=== PATIENT | male | born 1955 | race Caucasian/White ===

== ENCOUNTER → 2016-11-20 | Outpatient (CLI) | payer OTHER ==
[~2016-11-20] MED LIST: ALBUTEROL0.63 MG/3 INH; ALPRAZOLAM0.5 MG PO; CLARITIN10 M2 PO; ECOTRIN81 MG PO; FLONASE 0.05% N16 GM; IMDUR ER TAB 3030 MG PO; LIPITOR TAB 2020 MG PO; LISINOPRIL20 MG PO; LORTAB 10-3251 EACH PO; MIRALAX PACK 171 PKT GT; NITROSTAT0.4 MG SL; PLAVIX75 MG PO; PREVACID 30 MG30 MG GT; SINGULAIR10 MG PO; SPIRIVA HANDIH18 MCG INH; STOOL SOFTENER1 EACH PO; TENORMIN 25 MG25 MG PO; TESSALON PERLE100 MG PO; VOLTAREN EC 5050 MG PO; XANAX1 MG PO; ZETIA10 MG PO; ZOLOFT100 MG PO
== END ==
LOC: KOH-I 12:39
DX: M79.606 Pain in leg, unspecified (principal)
CPT/HCPCS: 73590

== ENCOUNTER → 2017-01-10 | Outpatient (CLI) | payer OTHER | LOC: US 15:00 | DX: R09.89 Other specified symptoms and signs involving the circulatory and respiratory systems (principal) | CPT/HCPCS: 93926 ==

== ENCOUNTER → 2017-06-01 | Outpatient (CLI) | payer OTHER ==
[2017-06-01 09:03] LABS: HEMOGLOBIN 12.4 gm/dl (14.0-17.5); RED BLOOD COUNT 3.85 M/UL (4.20-5.50); WHITE BLOOD COUNT 12.8 K/UL (4.5-11.0)
[2017-06-01 09:20] LABS: BUN/CREATININE RATIO 12 (0-10)
== END ==
LOC: OPSV2 05-31 10:30
PROVIDERS: Orthopaedic Surgery
DX: Z01.810 Encounter for preprocedural cardiovascular examination (principal); Z01.812 Encounter for preprocedural laboratory examination; M16.11 Unilateral primary osteoarthritis, right hip; E11.9 Type 2 diabetes mellitus without complications; I10 Essential (primary) hypertension; I25.2 Old myocardial infarction
CPT/HCPCS: 36415; 80048; 81001; 83036; 85027; 87081; 93005

== ENCOUNTER → 2020-09-20 | Outpatient (CLI) | payer MEDICARE, OTHER | LOC: HEART 5 14:55 | DX: J44.9 Chronic obstructive pulmonary disease, unspecified (principal); R94.2 Abnormal results of pulmonary function studies | CPT/HCPCS: 94010; 94729 ==

== ENCOUNTER → 2020-10-12 | Outpatient (CLI) | payer MEDICARE, OTHER | LOC: HEART 5 08:19 | DX: I25.10 Atherosclerotic heart disease of native coronary artery without angina pectoris (principal); R07.9 Chest pain, unspecified; R93.1 Abnormal findings on diagnostic imaging of heart and coronary circulation; I51.7 Cardiomegaly | CPT/HCPCS: 78452; 93306; A9502; J2785 ==

== ENCOUNTER → 2020-12-31 | Outpatient (CLI) | payer MEDICARE, OTHER | LOC: KOH-I 12-29 10:30 | DX: N28.1 Cyst of kidney, acquired (principal) | CPT/HCPCS: 76775 ==

== ENCOUNTER → 2021-01-06 | Outpatient (CLI) | payer MEDICARE, OTHER | LOC: KOH-I 09:26 | DX: K76.0 Fatty (change of) liver, not elsewhere classified (principal); N28.1 Cyst of kidney, acquired | CPT/HCPCS: 76705 ==

== ENCOUNTER → 2021-09-07 | Outpatient (CLI) | payer MEDICARE, OTHER | LOC: KOH-I 13:24 | DX: R60.9 Edema, unspecified (principal); R59.0 Localized enlarged lymph nodes | CPT/HCPCS: 93971 ==

== ENCOUNTER → 2021-10-11 | Outpatient (CLI) | payer MEDICARE, OTHER | LOC: EXRD 10:21 | DX: J20.9 Acute bronchitis, unspecified (principal); R06.02 Shortness of breath; Z20.822 Contact with and (suspected) exposure to COVID-19 | CPT/HCPCS: 71046; U0003 ==

== ENCOUNTER → 2022-01-09 | Outpatient (CLI) | payer MEDICARE, OTHER | LOC: HEART 5 01-05 07:30 | DX: I25.119 Atherosclerotic heart disease of native coronary artery with unspecified angina pectoris (principal) | CPT/HCPCS: 78452; A9502; J2785 ==

== ENCOUNTER → 2022-01-17 | Outpatient (CLI) | payer MEDICARE, OTHER | LOC: KOH-I 15:46 | DX: F17.210 Nicotine dependence, cigarettes, uncomplicated (principal) | CPT/HCPCS: 71271 ==

== ENCOUNTER → 2022-02-08 | Day surgery (SDC) | payer MEDICARE, OTHER ==
[~2022-02-08] MED LIST changes: +ALBUTEROL2.5 MG/3 M INH; +AMLODIPINE BES2.5 MG PO; +ARNUITY ELLIPT50 MCG INH; +LANSOPRAZOLE30 MG PO; +LISINOPRIL40 MG PO; +NITROSTAT 0.4100 TAB SL; +SPIRIVA18 MCG INH; +VITAMIN D-40010 MCG PO
== END | disposition home or self-care (01) ==
LOC: OR 06:57
DX: Z12.11 Encounter for screening for malignant neoplasm of colon (principal); D12.2 Benign neoplasm of ascending colon; D12.8 Benign neoplasm of rectum; K63.5 Polyp of colon; K57.30 Diverticulosis of large intestine without perforation or abscess without bleeding; K64.1 Second degree hemorrhoids; K59.09 Other constipation; E66.3 Overweight; Z86.010 Personal history of colon polyps; E11.9 Type 2 diabetes mellitus without complications; I10 Essential (primary) hypertension; F17.210 Nicotine dependence, cigarettes, uncomplicated; E78.00 Pure hypercholesterolemia, unspecified; Z68.28 Body mass index [BMI] 28.0-28.9, adult; Z88.8 Allergy status to other drugs, medicaments and biological substances; Z79.82 Long term (current) use of aspirin; Z79.899 Other long term (current) drug therapy
CPT/HCPCS: J2001; J2704; J7040

== ENCOUNTER → 2022-02-10 | Outpatient (CLI) | payer MEDICARE, OTHER | LOC: KOH-I 09:42 | DX: M25.551 Pain in right hip (principal); M25.552 Pain in left hip; M16.0 Bilateral primary osteoarthritis of hip | CPT/HCPCS: 73522 ==

== ENCOUNTER 2022-06-01 10:09 | Emergency (ER) | payer OTHER, MEDICARE ==
[2022-06-01 11:48] LABS: HEMOGLOBIN 12.1 gm/dl (14.0-17.5); RED BLOOD COUNT 3.81 M/UL (4.20-5.50); WHITE BLOOD COUNT 8.3 K/UL (4.5-11.0)
[2022-06-01] MEDS ORDERED: K-TAB ER20 MEQ PO (15:43)
[2022-06-01] MEDS ORDERED: ONDANSETRON ODT4 MG SL (15:43)
== END 2022-06-01 16:03 | disposition home or self-care (01) ==
LOC: ER1 10:09
PROVIDERS: Physician Assistant
DX: S16.1XXA Strain of muscle, fascia and tendon at neck level, initial encounter (principal); R10.9 Unspecified abdominal pain; R11.2 Nausea with vomiting, unspecified; E87.6 Hypokalemia; R51.9 Headache, unspecified; R05.9 Cough, unspecified; R10.813 Right lower quadrant abdominal tenderness; R10.814 Left lower quadrant abdominal tenderness; E11.9 Type 2 diabetes mellitus without complications; J44.9 Chronic obstructive pulmonary disease, unspecified; I10 Essential (primary) hypertension; I25.2 Old myocardial infarction; F17.200 Nicotine dependence, unspecified, uncomplicated; Z95.5 Presence of coronary angioplasty implant and graft; Z79.82 Long term (current) use of aspirin; V89.2XXA Person injured in unspecified motor-vehicle accident, traffic, initial encounter
CPT/HCPCS: 70450; 70551; 71045; 72125; 80053; 81001; 82550; 82553; 83690; 84484; 85025; 93005; 96374; 99285; J2405